=== PATIENT | male | born 1990 | race Caucasian/White ===

== ENCOUNTER 2017-03-08 19:09 | Observation (INO) ==
[2017-03-08 20:45] LABS: Basophils % 0.1 %; Hematocrit 48.2 % (37.5-50.1); Hemoglobin 16.1 g/dL (12.9-16.9); Immature Granulocytes % 0.7 % (0-4); Lymphocytes # 0.8 K/mcL (0.6-4.6); Lymphocytes % 4.8 %; Mean Corpuscular HGB Conc 33.4 g/dL (31.6-35.5); Mean Corpuscular Hemoglobin 30.3 pg (28.0-33.3); Mean Corpuscular Volume 90.8 fL (83.0-100.0); Mean Platelet Volume 9.1 fL (9.4-12.4); Monocytes # 0.7 K/mcL (0.0-1.3); Monocytes % 4.1 %; Neutrophils # 15.1 K/mcL (1.6-8.9); Platelet Count 249 K/mcL (140-400); Red Blood Count 5.31 M/mcL (4.19-5.50); Red Cell Distribution Width 13.2 % (11.5-14.5); Segmented Neutrophils % 90.3 %
[2017-03-08 20:50] LABS: Alanine Aminotransferase 36 Units/L (0-55); Albumin 4.5 g/dL (3.5-5.0); Albumin/Globulin Ratio 1.2 (1.1-2.2); Alkaline Phosphatase 91 Units/L (38-126); Aspartate Amino Transferase 19 Units/L (5-34); BUN/Creatinine Ratio 18 (6-26); Bilirubin,Direct 0.1 mg/dL (0.0-0.5); Bilirubin,Indirect 0.2 mg/dL (0.0-1.2); Bilirubin,Total < 0.3 mg/dL (0.2-1.2); Blood Urea Nitrogen 19 mg/dL (8-26); Calcium 9.8 mg/dL (8.6-10.8); Carbon Dioxide 24 mEq/L (19-29); Chloride 106 mEq/L (98-109); Globulin 3.8 g/dL (2.4-3.5); Glucose 138 mg/dL (70-99); Osmolality,Calculated 292 (280-300); Sodium 139 mEq/L (136-145); Total Protein 8.3 g/dL (6.0-8.3); eGFR For African Americans > 60 (> 60); eGFR For Non-African Americans > 60 (> 60)
[2017-03-08 20:51] LABS: Ethanol < 10 mg/dL (0-10)
[2017-03-08] MEDS ORDERED: Ondansetron 4 MG/2 ML VIAL IVP ONE (20:54)
[2017-03-08] MEDS ORDERED: 0.9 % Sodium Chloride 1,000 ML IVC ONE ×3 (20:54→23:45)
--- NOTE | 2017-03-08 21:18 | Emergency Department Note ---
Disposition Clinical Impression: Altered mental status, Urinary retention, Vision problems Disposition: Admitted As Inpatient Condition: Fair General Adult HPI - General Chief complaint: ED General Medical Stated complaint: Syncope / N/V Time Seen by Provider: 03/08/17 20:43 Source: patient Limitations: no limitations Nursing Notes Reviewed: Yes Vital Signs Reviewed: Yes - History of Present Illness HPI Narrative: Patient presents to the emergency room for evaluation of fatigue and sleepiness. Patient states he cannot keep his eyes open and continually wants to fall asleep. Patient states that she has had 2 episodes of vomiting that he cannot otherwise explain. Nonbilious nonbloody in nature. Patient states that he has a history of sleeping problems and last night took a hydroxyzine to help him sleep. The patient will usually feel groggy after he takes this medication but it clears up with a warm shower and food. The patient did what he normally does but went to orientation at his new job and was unable to keep his eyes open and began having some difficulty staying awake. He states that he is not able to remember everything that has been happening as his memory and thought processes very funny. Patient can use to head ciarra on exam and appears to be trying to remember everything but is having difficulty. On exam the patient has dizziness with extraocular muscle movements and states that he cannot focus with accommodation. His neuro exam is otherwise normal including pupils that are 3 and reactive. The patient has normal range of motion of his neck and has not had a fever. He complains of some chills. Nausea. When the patient stands up to try to urinate he feels somewhat unsteady. Pain Scale: 0 - Related Data Previous Rx's Medication Instructions Recorded Mupirocin [Bactroban Oint] 1 appl TP BID #1 tube 02/03/17 Sulfamethoxazole/Trimeth DS 1 each PO BID #20 tablet 02/03/17 [Bactrim DS] Bacitracin/PolymyxinB OPTH Oin 0 gm RIGHT EYE BID #1 oint...g. 02/23/17 Allergies Allergy/AdvReac Type Severity Reaction Status Date / Time Amoxicillin [From Augmentin] Allergy Rash Verified 04/14/15 16:37 clarithromycin [From Biaxin] Allergy Hives Verified 04/14/15 16:37 clavulanic acid Allergy Rash Verified 04/14/15 16:37 [From Augmentin] Sulfa (Sulfonamide Allergy Rash Verified 04/14/15 16:37 Antibiotics) Review of Systems: CONSTITUTIONAL: No weight loss, fever, chills, weakness or fatigue. HEENT: Eyes: No visual changes. Ears, Nose, Throat: No hearing loss, difficulty talking or unable to swallow. SKIN: No rash or itching. CARDIOVASCULAR: Tachycardia No chest pain, chest pressure or chest discomfort. No palpitations or edema. RESPIRATORY: No shortness of breath, cough or sputum. GASTROINTESTINAL: No anorexia, nausea, vomiting or diarrhea. No abdominal pain or blood. GENITOURINARY: No burning on urination or hematuria. NEUROLOGICAL: Falling asleep, cannot stay awake, vision problems, urinary retention, MUSCULOSKELETAL: No muscle pain, back pain, joint pain or stiffness. Past Medical History - Past Medical History Medical history: Reports: non-contributory, asthma, other Surgical history: Reports: no surgical history Psychiatric history: Reports: no psych history - Social History Smoking Status: Current every day smoker Smokeless Tobacco Status: No Alcohol use: Reports: occasionally Drug use: Reports: none Physical Exam General appearance: NAD, conversant Eyes: anicteric sclerae, moist conjunctivae; PERRL HENT: Atraumatic; oropharynx clear with moist mucous membranes and no mucosal ulcerations Neck: Normal inspection; Trachea midline; FROM, supple Lungs: CTA, with normal respiratory effort and no intercostal retractions CV: RRR, no MRGs Abdomen: Soft, non-tender; no rebound or gaurding Extremities: No peripheral edema or extremity lymphadenopathy Skin: Normal temperature; no rash, ulcers or lesions Psych: Appropriate mood and affect Neuro: alert and oriented to person, place and time - General Limitations: no limitations General appearance: alert, in no apparent distress - Expanded Neurological Exam Patient oriented to: Present: person Speech: Present: fluid speech Cranial nerves: EOM function (II, III, IV, ): Normal, facial sensation (V): Normal, facial palsy (VII): Normal, gag reflex (IX): Normal, spinal accessory function (XI): Normal, tongue deviation (XII): Normal Cerebellar function: finger to nose: Normal, heel to valencia: Normal Cerebellar function: normal gait Motor strength - LUE: 5/5 Motor strength - RUE: 5/5 Motor strength - LLE: 5/5 Motor strength - RLE: 5/5 Sensory exam upper extremity: light touch: Normal Sensory exam lower extremity: light touch: Normal Coma Scale Eye Opening: Spontaneous Coma Scale Motor Response: Obeys Commands Coma Scale Verbal Response: Oriented Coma Scale Total: 15 Course Course Narrative: Recognized the patient as he is to be attack on 2 N. in the ICU. After discussing with the patient he states that he took this one hydroxyzine earlier last night and has been having these symptoms since. 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 Adamantly denies any other drug use other than a prescribed benzo that he can take for anxiety that he took 3 days ago. Patient states he normally feels groggy after taking the hydroxyzine and that his symptoms did improve but during his clinicals he could not keep his eyes open and felt worse. The patient stayed here for a significant amount of time in the emergency room as it was continually thought that he would be able to be discharged but new symptoms presented. The patient's symptoms significantly improved with fluids however his heart rate upon entering the room continues to be approximately 100 despite the documented vital signs in the chart. The patient was unable to get a urine sample for a very prolonged time and after bladder scan showing greater than 700 mL of fluid he was walked to the bathroom where he thought he would be more comfortable. The patient drinks greater than 700 of fluid and has a bladder scan of approximately 200. Patient continues to feel better throughout his stay however upon negative head CT and negative urinalysis the patient is going to be discharged with family for home observation and return if better however the patient began complaining of not being able to see his cell phone and vision problems. Patient's vision problems seem to be limited to his screen and repeat reading fine print. His pupils are not significantly dilated and have not been throughout his stay. Patient has a mixed picture however does not appear to be infectious at this time. We will admit for observation and to make sure his symptoms have cleared prior to discharge. The symptoms persist we recommend neurology consult. Vital Signs Temperature 97.8 F 03/08/17 19:31 Pulse Rate 93 03/08/17 19:31 Respiratory Rate 20 03/08/17 19:31 Blood Pressure 137/87 03/08/17 19:31 O2 Sat by Pulse Oximetry 97 03/08/17 19:31 Temperature 0 F L 03/09/17 04:53 Pulse Rate 84 03/09/17 02:21 Respiratory Rate 0 03/09/17 04:53 Blood Pressure 0/0 03/09/17 04:53 O2 Sat by Pulse Oximetry 98 03/09/17 02:21 Oxygen Delivery Oxygen Delivery Room Air Medical Decision Making - Medical Records Medical records reviewed: Yes I reviewed the patient's medical records. - Lab Data Lab results reviewed: Yes I reviewed the patient's lab results. Result diagrams: 03/08/17 20:23 03/08/17 20:23 Lab Results 03/08/17 03/08/17 03/08/17 Range/Units 20:23 20:23 20:23 WBC 16.7 H (4.3-11.1) K/mcL RBC 5.31 (4.19-5.50) M/mcL Hgb 16.1 (12.9-16.9) g/dL Hct 48.2 (37.5-50.1) % MCV 90.8 (83.0-100.0) fL MCH 30.3 (28.0-33.3) pg MCHC 33.4 (31.6-35.5) g/dL RDW 13.2 (11.5-14.5) % Plt Count 249 (140-400) K/mcL MPV 9.1 L (9.4-12.4) fL Immature Gran % 0.7 (0-4) % Seg Neutrophils % 90.3 % Lymphocytes % 4.8 % Monocytes % 4.1 % Eosinophils % 0.0 % Basophils % 0.1 % Neutrophils # 15.1 H (1.6-8.9) K/mcL Lymphocytes # 0.8 (0.6-4.6) K/mcL Monocytes # 0.7 (0.0-1.3) K/mcL Eosinophils # 0.0 (0.0-0.6) K/mcL Basophils # 0.0 (0.0-0.2) K/mcL Sodium 139 (136-145) mEq/L Potassium 5.0 H (3.5-4.5) mEq/L Chloride 106 (98-109) mEq/L Carbon Dioxide 24 (19-29) mEq/L BUN 19 (8-26) mg/dL Creatinine 1.05 (0.72-1.25) mg/dL Est GFR ( Amer) > 60 (> 60) Est GFR (Non-Af Amer) > 60 (> 60) BUN/Creatinine Ratio 18 (6-26) Glucose 138 H (70-99) mg/dL Calculated Osmolality 292 (280-300) Calcium 9.8 (8.6-10.8) mg/dL Total Bilirubin < 0.3 (0.2-1.2) mg/dL Direct Bilirubin 0.1 (0.0-0.5) mg/dL Indirect Bilirubin 0.2 (0.0-1.2) mg/dL AST 19 (5-34) Units/L ALT 36 (0-55) Units/L Alkaline Phosphatase 91 (38-126) Units/L Troponin I 0.00 (0-0.03) ng/mL Serum Total Protein 8.3 (6.0-8.3) g/dL Albumin 4.5 (3.5-5.0) g/dL Globulin 3.8 H (2.4-3.5) g/dL Albumin/Globulin Ratio 1.2 (1.1-2.2) Urine Color (Yellow) Urine Clarity (Clear) Urine pH (5.0-8.0) pH Units Ur Specific [place] (1.010-1.025) Urine Protein (Neg-Trace) mg/dL Urine Glucose (UA) (Normal) mg/dL Urine Ketones (Negative) mg/dL Urine Blood (Negative) Urine Nitrite (Negative) Urine Bilirubin (Negative) Urine Urobilinogen (Normal) mg/dL Ur Leukocyte Esterase (Negative) Ur Culture Indicated? (NO) Urine Opiates Screen (Xxkpas=137) ng/mL Ur Barbiturates Screen (Haxsrq=453) ng/mL Ur Phencyclidine Scrn (Cutoff=25) ng/mL Ur Amphetamines Screen (Wjeann=6582) ng/mL U Benzodiazepines Scrn (Flysbb=976) ng/mL Urine Cocaine Screen (Cutoff= 300) ng/mL U Marijuana (THC) Screen (Cutoff = 50) ng/mL Ethyl Alcohol < 10 (0-10) mg/dL 03/09/17 03/09/17 Range/Units 01:50 01:50 WBC (4.3-11.1) K/mcL RBC (4.19-5.50) M/mcL Hgb (12.9-16.9) g/dL Hct (37.5-50.1) % MCV (83.0-100.0) fL MCH (28.0-33.3) pg MCHC (31.6-35.5) g/dL RDW (11.5-14.5) % Plt Count (140-400) K/mcL MPV (9.4-12.4) fL Immature Gran % (0-4) % Seg Neutrophils % % Lymphocytes % % Monocytes % % Eosinophils % % Basophils % % Neutrophils # (1.6-8.9) K/mcL Lymphocytes # (0.6-4.6) K/mcL Monocytes # (0.0-1.3) K/mcL Eosinophils # (0.0-0.6) K/mcL Basophils # (0.0-0.2) K/mcL Sodium (136-145) mEq/L Potassium (3.5-4.5) mEq/L Chloride (98-109) mEq/L Carbon Dioxide (19-29) mEq/L BUN (8-26) mg/dL Creatinine (0.72-1.25) mg/dL Est GFR ( Amer) (> 60) Est GFR (Non-Af Amer) (> 60) BUN/Creatinine Ratio (6-26) Glucose (70-99) mg/dL Calculated Osmolality (280-300) Calcium (8.6-10.8) mg/dL Total Bilirubin (0.2-1.2) mg/dL Direct Bilirubin (0.0-0.5) mg/dL Indirect Bilirubin (0.0-1.2) mg/dL AST (5-34) Units/L ALT (0-55) Units/L Alkaline Phosphatase (38-126) Units/L Troponin I (0-0.03) ng/mL Serum Total Protein (6.0-8.3) g/dL Albumin (3.5-5.0) g/dL Globulin (2.4-3.5) g/dL Albumin/Globulin Ratio (1.1-2.2) Urine Color Yellow (Yellow) Urine Clarity Clear (Clear) Urine pH 5.5 (5.0-8.0) pH Units Ur Specific [place] 1.025 (1.010-1.025) Urine Protein Negative (Neg-Trace) mg/dL Urine Glucose (UA) Normal (Normal) mg/dL Urine Ketones Negative (Negative) mg/dL Urine Blood Negative (Negative) Urine Nitrite Negative (Negative) Urine Bilirubin Negative (Negative) Urine Urobilinogen Normal (Normal) mg/dL Ur Leukocyte Esterase Negative (Negative) Ur Culture Indicated? NO (NO) Urine Opiates Screen Negative (Aweuge=780) ng/mL Ur Barbiturates Screen Negative (Kpcxzw=535) ng/mL Ur Phencyclidine Scrn Negative (Cutoff=25) ng/mL Ur Amphetamines Screen Negative (Bhjzug=0348) ng/mL U Benzodiazepines Scrn Positive H (Uimbdl=365) ng/mL Urine Cocaine Screen Negative (Cutoff= 300) ng/mL U Marijuana (THC) Screen Negative (Cutoff = 50) ng/mL Ethyl Alcohol (0-10) mg/dL - Radiology Data Radiology results reviewed: Yes I reviewed the patient's radiology results. Chest X-Ray 03/08/17 19:35 IMPRESSION: No acute disease D/ / Carlos Enrique Mcgee MD / Carlos Enrique Mcgee MD Interpreting Provider: Carlos Enrique Mcgee MD Head CT 03/09/17 00:12 IMPRESSION: No acute intracranial abnormality. D/ / Kendrick Connolly MD / Kendrick Connolly MD Interpreting Provider: Kendrick Connolly MD - EKG Data EKG #1 EKG attestation: Yes I reviewed and interpreted this EKG. EKG results narrative: EKG shows sinus rhythm with a ventricular rate of 72. WA interval 148. QRS 111. QTC 371. Patient hasan ST elevation or depression. Patient has some T- wave changes to the inferior leads that are present from previous EKG of 2009. Attestation Statement - Attestation Attestation: I, Natan Choudhury MD, personally evaluated this patient and discussed their management with the resident physician. I reviewed the resident's note and agree with the documented findings, medical decision making, and plan of care. 26-year-old male presents to the emergency department with complaint of altered mental status and generalized weakness. Patient states that he took a Vistaril last night before going to bed and he woke up this morning he felt very weak and drowsy and confused. He took a shower thinking he would feel better and it did help some but then when he was driving to work he states symptoms returned and he felt very sleepy and drowsy and weak. He did go to work and apparently was fine initially and then while at work he came extremely weak again. He has not been ill otherwise. No fever. No headache or stiff neck. Some nausea but no vomiting or diarrhea. No dysuria or hematuria. Several episodes of near- syncope but no actual loss of consciousness. On examination patient is a well-developed well-nourished young male in no acute distress. He is very drowsy and slow to respond but does respond to verbal stimuli. Patient appears to be overmedicated but denies taking anything other than the Vistaril last night before bed. He has taken this in the past. There is no cyanosis or diaphoresis. PERRL. Mucus membranes are moist. Neck is supple and nontender with no lymphadenopathy and full range of motion. Touches chin to chest with no discomfort. Breath sounds are clear and equal bilaterally. Heart regular with a mild tachycardia. Abdomen soft and nontender with normal bowel sounds. No gross focal neurological deficits. Labs reviewed. Chest x-ray negative. Head CT negative. Patient observed here in the emergency department for approximately 8 hours with some gradual improvement in his mental status after IV fluids however he remains symptomatic and started complaining of some visual problems. He also had some urinary retention but was finally able to urinate without having to be catheterized. Due to the persistence of his symptoms the hospitalist, Dr. Villarreal , was consulted and accepted admission of the patient.
[2017-03-09 02:01] LABS: Bilirubin,Urine Negative (Negative); Blood,Urine Negative (Negative); Clarity,Urine Clear (Clear); Color,Urine Yellow (Yellow); Glucose,Urine (UA) Normal (Normal); Ketones,Urine Negative (Negative); Leukocyte Esterase,Urine Negative (Negative); Nitrite,Urine Negative (Negative); PH,Urine 5.5 pH Units (5.0-8.0); Protein,Urine Negative (Neg-Trace); Specific Gravity,Urine 1.025 (1.010-1.025); Urobilinogen,Urine Normal (Normal)
[2017-03-09 02:05] LABS: Amphetamine Screen,Urine Negative ng/mL (Cutoff=1000); Barbiturate Screen,Urine Negative ng/mL (Cutoff=200); Benzodiazepines Screen,Urine Positive ng/mL (Cutoff=200); Cannabinoid Screen,Urine Negative ng/mL (Cutoff = 50); Cocaine Screen,Urine Negative ng/mL (Cutoff= 300); Opiate Screen,Urine Negative ng/mL (Cutoff=300); Phencyclidine Screen,Urine Negative ng/mL (Cutoff=25)
--- NOTE | 2017-03-09 04:29 | Internal Med History&Physical ---
<Solitario Brown - Last Filed: 03/09/17 04:32> Date of Encounter: 03/09/17 Time of Encounter: 03:50 Assessment and Plan (1) Acute encephalopathy Current visit: Yes Status: Acute - With drowsiness, double vision, nausea, vomiting. - Most likely secondary to hydroxyzine use. Other differential include metabolic encephalopathy or psychogenic. - Head CT found no acute intracranial abnormality. - Patient reports improvement after receiving IV fluid in ED. - Continue IV fluid. - Continue close monitoring (2) Hyperkalemia Current visit: Yes Status: Acute - K at 5.0 - Continue IV NS. - Continue to monitor. (3) Leukocytosis Current visit: Yes Status: Acute - WBC 16.7 - Likely stress response as no signs or work-up (e.g. UA and CXR) indicating active infection. - Continue to monitor. Qualifiers: Leukocytosis type: unspecified Qualified Code(s): D72.829 - Elevated white blood cell count, unspecified (4) Tobacco use Current visit: Yes Status: Acute - Smoke cessation counseling. - Okay to provide nicotine if patient needs it. (5) Insomnia Current visit: Yes Status: Chronic - Patient took hydroxyzine at home. - Patient will need to discuss with his PCP regarding insomnia medications other than hydroxyzine. Qualifiers: Insomnia type: unspecified Qualified Code(s): G47.00 - Insomnia, unspecified Internal Medicine - H&P: HPI Chief complaint: Drowsiness Admitted From: Emergency Dept Plans for Post Hospital Care: Home History of present illness: Mr. Crowell is a 26 year old male with PMH of asthma and depression/anxiety. 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 Patient reports having double vision and unable to read on screen. Patient also had 4 episode of vomiting. Patient reports taking one pill of hydroxyzine earlier last night. Patient denies fever, chills, neck pain, chest pain, abdominal pain, diarrhea, constipation, dysuria. Patient reports taking prescribed benzo three days ago but denies any other drug use. Patient denies suicidal or homicidal ideation. Patient denies any jerking, tongue bitting or incontinence and has no known seizure history. Patient did have longer than normal time to urinate despite of receiving 3L of IV NS. Head CT and CXR in ED found no acute abnormality. Patient was noted to have WBC 16.7 and K 5.0 but rest of labs are unremarkable. Past Med Surg Social Fam HX - Past Medical History Medical history: non-contributory, asthma, other Psychiatric history: anxiety, depression - Past Surgical History Surgical History: other (Sinus reconstruction surgery) - Social History Smoking Status: Current every day smoker Smokeless Tobacco Status: No Alcohol use: occasionally Drug use: none - Family History Mother Hx Family Endocrine Disorder: Yes (DM) Hx Family Neurologic Disorders: Yes (seizure) Hx Family Autoimmune Disorders: Yes (RA) Internal Medicine - H&P: Meds Mupirocin [Bactroban Oint] 1 appl TP BID #1 tube 02/03/17 [Rx] Sulfamethoxazole/Trimeth DS [Bactrim DS] 1 each PO BID #20 tablet 02/03/17 [Rx] Bacitracin/PolymyxinB OPTH Oin 0 gm RIGHT EYE BID #1 oint...g. 02/23/17 [Rx] Allergies Amoxicillin [From Augmentin] Allergy (Verified 04/14/15 16:37) Rash clarithromycin [From Biaxin] Allergy (Verified 04/14/15 16:37) Hives clavulanic acid [From Augmentin] Allergy (Verified 04/14/15 16:37) Rash Sulfa (Sulfonamide Antibiotics) Allergy (Verified 04/14/15 16:37) Rash All Systems PM: A 10-system review of systems was performed and is negative for pertinent findings except as documented above in the HPI. - Constitutional Constitutional: no anorexia, no chills, no fever(s) - EENT Eyes: diplopia Ears: decreased hearing Nose, mouth and throat: no dysphagia, no odynophagia - Cardiovascular Cardiovascular ROS IM: palpitations, no chest pain, no edema - Respiratory Respiratory: dyspnea, no cough, no hemoptysis - Gastrointestinal Gastrointestinal: nausea, vomiting, no abdominal pain, no constipation, no diarrhea - Genitourinary Genitourinary ROS male: no dysuria, no hematuria - Integumentary Integumentary IM: no pruritus, no rash - Neurological Neurological ROS: no focal weakness, no numbness, no tingling - Hematologic/Lymphatic Hematologic/Lymphatic: no easy bleeding, no easy bruising - Constitutional Vitals: Temp Pulse Resp BP Pulse Ox 97.8 F 84 18 124/85 98 03/08/17 22:15 03/09/17 02:21 03/09/17 02:21 03/09/17 02:21 03/09/17 02:21 General appearance: Present: cooperative, A&O X 3, no acute distress - Head Head exam: Present: atraumatic, normocephalic - Eye Eye exam: Present: EOMI, PERRL, conjuntiva pink, sclera anicteric - Neck Neck exam general surgery: Present: supple, trachea midline. Absent: lymphadenopathy - Respiratory Respiratory exam: Present: CTAB. Absent: accessory muscle use, rales, rhonchi, wheezes - Cardiovascular Cardiovascular exam: Present: RRR, +S1, +S2. Absent: diastolic murmur, gallop, rubs, systolic murmur - GI/Abdominal GI/Abdominal exam: Present: normal bowel sounds, soft, no peritoneal signs. Absent: distended, tenderness - Extremities Exam Extremities exam: Present: warm, radial pulses palpable and symetrical. Absent : calf tenderness, cyanotic, pedal edema - Neurological Exam Neurological exam: Present: CN II-XII intact, oriented X3, no focal deficits. Absent: pronater drift, facial droop, speech deficit - Skin Skin exam: Present: dry, intact, warm Internal Med - H&P Results - Labs CBC & Chem 7: 03/08/17 20:23 03/08/17 20:23 <Alexander Villarreal - Last Filed: 03/09/17 06:36> Date of Encounter: 03/09/17 Internal Medicine - H&P: HPI History of present illness: Mr. Crowell is a 26 year old male All Systems PM: A 10-system review of systems was performed and is negative for pertinent findings except as documented above in the HPI. - Constitutional Vitals: Temp Pulse Resp BP Pulse Ox 0 F L 84 0 0/0 98 03/09/17 04:53 03/09/17 02:21 03/09/17 04:53 03/09/17 04:53 03/09/17 02:21 Internal Med - H&P Results - Labs CBC & Chem 7: 03/08/17 20:23 03/08/17 20:23 - Diagnostic Studies Chest x-ray Status: image reviewed by me CT scan - head Status: image reviewed by me - Attending Attestation I personally interviewed and examined this patient and my medical decision- making was reviewed with the Resident Physician. I agree with the documented findings, disposition and treatment plan as described. He can be discharged hoe later in the day, he was given patient information from "[facility]" concerning hydroxyzine. Alexander Villarreal MD, MPH Hospitalist
[2017-03-09] MEDS ORDERED: 0.9 % Sodium Chloride 1,000 ML IVC SCH (04:30)
[2017-03-09] MEDS: Nicotine 14 MG PATCH.TD24 TD SCH ×2 (06:25→10:48)
[2017-03-09] MEDS ORDERED: *HR* Heparin 5,000 UNIT/ML VIAL SQ SCH (06:45)
[2017-03-09 07:53] LABS: BUN/Creatinine Ratio 14 (6-26); Blood Urea Nitrogen 12 mg/dL (8-26); Calcium 8.8 mg/dL (8.6-10.8); Carbon Dioxide 28 mEq/L (19-29); Chloride 107 mEq/L (98-109); Glucose 98 mg/dL (70-99); Osmolality,Calculated 296 (280-300); Sodium 143 mEq/L (136-145); eGFR For African Americans > 60 (> 60); eGFR For Non-African Americans > 60 (> 60)
[2017-03-09 08:04] LABS: Basophils % 0.2 %; Eosinophils % 0.4 %; Hematocrit 42.1 % (37.5-50.1); Immature Granulocytes % 0.4 % (0-4); Lymphocytes # 2.7 K/mcL (0.6-4.6); Lymphocytes % 33.4 %; Mean Corpuscular HGB Conc 32.5 g/dL (31.6-35.5); Mean Corpuscular Hemoglobin 30.1 pg (28.0-33.3); Mean Corpuscular Volume 92.5 fL (83.0-100.0); Mean Platelet Volume 9.3 fL (9.4-12.4); Monocytes # 0.7 K/mcL (0.0-1.3); Monocytes % 8.6 %; Neutrophils # 4.6 K/mcL (1.6-8.9); Platelet Count 208 K/mcL (140-400); Red Blood Count 4.55 M/mcL (4.19-5.50); Red Cell Distribution Width 13.5 % (11.5-14.5)
[2017-03-09 08:06] LABS: Potassium 3.9 mEq/L (3.5-4.5)
[2017-03-09 08:19] LABS: Hemoglobin 13.7 g/dL (12.9-16.9)
[2017-03-09] MEDS ORDERED: Metoclopramide 10 MG in 0.9 % Sodium Chloride 50 ML IVPB ONE (11:31)
[2017-03-09] MEDS ORDERED: Metoclopramide 10 MG/2 ML VIAL IVP ONE (11:32)
[2017-03-09 11:38] VITALS: BP 134/88
--- NOTE | 2017-03-09 14:15 | Discharge Summary ---
Date of Encounter: 03/09/17 Time of Encounter: 13:45 - Discharge Diagnosis (1) Acute encephalopathy Priority: Primary Status: Acute Comments: Pt has returned to baseline. He is a/o x 3, speech is clear, he has full recollection of events. Head cT negative. Labs WNL. Vitals stable. (2) Hyperkalemia Priority: Secondary Status: Resolved Comments: Resolved. 3.9 (3) Insomnia Priority: Secondary Status: Chronic Comments: Chronic. I have talked to him about not taking Hydroxyzine anymore. Try relaxation techniques prior to medications. Qualifiers: Insomnia type: unspecified Qualified Code(s): G47.00 - Insomnia, unspecified (4) Tobacco use Priority: Secondary Status: Chronic Comments: Pt states that he does not smoke that much and that he will quit on his own. (5) Leukocytosis Priority: Secondary Status: Resolved Comments: Resolved. Hgb 8.1 Qualifiers: Leukocytosis type: unspecified Qualified Code(s): D72.829 - Elevated white blood cell count, unspecified - Discharge Medications Home Medications: Omeprazole [PriLOSEC] 20 mg PO DAILY 03/09/17 [History] Allergies/Adverse Reactions: Allergies Amoxicillin [From Augmentin] Allergy (Verified 04/14/15 16:37) Rash clarithromycin [From Biaxin] Allergy (Verified 04/14/15 16:37) Hives clavulanic acid [From Augmentin] Allergy (Verified 04/14/15 16:37) Rash Sulfa (Sulfonamide Antibiotics) Allergy (Verified 04/14/15 16:37) Rash Date of admission: 03/09/17 04:21 Primary care physician: Katie Heart CNP Discharging clinician: Brianne Antonio Anticipated date of discharge: 03/09/17 - Patient Status Disposition: Home, Self-Care Condition: Good Functional capacity at discharge: independent ambulation Overall status at discharge: patient is back to baseline - Discharge Instructions Follow Up With: Katie Heart CNP [Primary Care Provider] - Additional Instructions: Please follow up with your PCP for a follow up visit in the next 7-10 days. Do not take Hydroxyzine anymore. Try relaxation techniques as we discussed. Try to stop smoking. Return to work tomorrow. Return to ED for any other problems or concerns. - Diet and Activity Activity: resume usual activities as tolerated Diet: advance to your usual diet Hospital course: Mr. Crowell is a 26 year old male with PMH of insomnia and GERD. Pt states that he has taken hydroxyzine in the past and was very drowsy for a long period of time after. He took another one the night prior to admission at about 2200, slept all night and awakened at about 1300 the day of admission. He states that he had to be at work at 1400 and became increasingly more drowsy after he got to work and was sent to the ED for evaluation. He had several episodes of emesis prior to arrival at ED. Pt states that he became better after IVF in the ED. Pt had leukocytosis on arrival which was most likely reactive to stressors since there was no source of infection found and it has returned to normal this a.m. Pt states that he barely smokes and he will quit on his own, does not with to have any smoking cessation tools or materials. Pt states that he was taking the hydroxyzine for chronic insomnia. We have discussed relaxation techniques to try in lieu of medications. Head CT and chest xrays were negative for acute processes. Labs have returned to baseline. Vitals are stable. Pt is stable and ready for discharge. Time spent discussing smoking cessation with patient: 3 to 10 minutes - Time Spent with Patient Total time spent providing and/or coordinating discharge services: Less than 30 minutes - Constitutional Vitals: Temp Pulse Resp BP Pulse Ox 98.0 F 97 16 134/88 98 03/09/17 11:38 03/09/17 11:38 03/09/17 11:38 03/09/17 11:38 03/09/17 11:38 General appearance: Present: cooperative, A&O X 3, pleasant, no acute distress, answers questions appropriately - Head Head exam: Present: normal inspection - Eye Eye exam: Present: EOMI, normal appearance, PERRL, conjuntiva pink. Absent: nystagmus - ENT ENT exam: Present: mucous membranes moist, normal exam, normal external ear exam - Neck Neck exam general surgery: Present: normal inspection. Absent: lymphadenopathy , tenderness - Respiratory Respiratory exam: Present: CTAB. Absent: chest wall tenderness, decreased breath sounds, rales, respiratory distress, rhonchi, stridor, wheezes, tachypnea - Cardiovascular Cardiovascular exam: Present: RRR, +S1, +S2. Absent: clicks, diastolic murmur, gallop, systolic murmur - GI/Abdominal GI/Abdominal exam: Present: soft. Absent: distended, hepatomegaly, mass, tenderness - Extremities Exam Extremities exam: Present: normal capillary refill, warm, radial pulses palpable and symetrical. Absent: joint swelling, pedal edema, tenderness - Neurological Exam Neurological exam: Present: alert, oriented X3, no focal deficits, strengths equal and symetr throughout. Absent: pronater drift, facial droop, speech deficit
--- NOTE | 2017-03-11 15:09 | Electrocardiograph Report ---
[address] [place] [address] Test Date: 2017-03-08 Pat Name: Henry Crowell Department: 105 Room: 3B39 Gender: M Procedure Tech: SARA : 1990 Requested By: Natan Choudhury Order Number: [id number] Reading MD: Kavita Hernandez Measurements Intervals [place] Rate: 72 P: 53 NM: 148 QRS: 14 QRSD: 111 T: -9 QT: 346 QTc: 371 Interpretive Statements SINUS RHYTHM INTRAVENTRICULAR CONDUCTION DELAY NONSPECIFIC T WAVE INVERSIONS Electronically Signed On 03-10-2017 11:58:29 EDT by Kavita Hernandez
== END 2017-03-09 15:35 | disposition home or self-care (01) ==
LOC: EMEROO 19:09 → 3BNU 19:09
PROVIDERS: ADMIT Internal Medicine; ATTEND Registered Nurse

== ENCOUNTER 2019-07-27 04:51 | Inpatient (IN) ==
[2019-07-27] MEDS ORDERED: Ondansetron 4 MG/2 ML VIAL IVP ONE ×2 (06:11→12:46)
[2019-07-27] MEDS ORDERED: 0.9 % Sodium Chloride 1,000 ML IVC ONE ×2 (06:11→06:40)
[2019-07-27 06:21] LABS: Basophils % 0.3 %; Eosinophils % 0.2 %; Hematocrit 54.9 % (37.5-50.1); Immature Granulocytes % 0.4 % (0-4); Lymphocytes # 1.1 K/mcL (0.6-4.6); Lymphocytes % 7.9 %; Mean Corpuscular Hemoglobin 30.7 pg (28.0-33.3); Mean Corpuscular Volume 87.7 fL (83.0-100.0); Mean Platelet Volume 9.3 fL (9.4-12.4); Monocytes # 1.1 K/mcL (0.0-1.3); Monocytes % 7.5 %; Neutrophils # 12.1 K/mcL (1.6-8.9); Platelet Count 361 K/mcL (140-400); Red Blood Count 6.26 M/mcL (4.19-5.50); Red Cell Distribution Width 12.4 % (11.5-14.5); Segmented Neutrophils % 83.7 %
[2019-07-27 06:22] LABS: Hemoglobin 19.2 g/dL (12.9-16.9); White Blood Count 14.4 K/mcL (4.3-11.1)
[2019-07-27 06:28] LABS: Alanine Aminotransferase 30 Units/L (7-52); Albumin 5.1 g/dL (3.5-5.7); Albumin/Globulin Ratio 1.7 (1.1-2.2); Alkaline Phosphatase 96 Units/L (34-104); Amylase 149 Units/L (29-103); Aspartate Amino Transferase 20 Units/L (13-39); BUN/Creatinine Ratio 13 (6-26); Bilirubin,Direct 0.1 mg/dL (0.0-0.2); Bilirubin,Indirect 0.6 mg/dL (0.0-1.0); Bilirubin,Total 0.7 mg/dL (0.3-1.0); Blood Urea Nitrogen 17 mg/dL (6-20); Calcium 10.5 mg/dL (8.6-10.3); Carbon Dioxide 20 mEq/L (23-29); Chloride 104 mEq/L (98-107); Glucose 144 mg/dL (70-105); Lipase 215 Units/L (11-82); Osmolality,Calculated 296 (280-300); Potassium 3.6 mEq/L (3.5-5.1); Sodium 141 mEq/L (136-145); Total Protein 8.1 g/dL (6.4-8.9); eGFR For African Americans > 60 (> 60); eGFR For Non-African Americans > 60 (> 60)
[2019-07-27] MEDS ORDERED: Promethazine 25 MG in 0.9 % Sodium Chloride 50 ML IVPB ONE (06:40)
[2019-07-27] MEDS ORDERED: Isovue-370 500 ML BOTTLE IVP ONE (06:41)
[2019-07-27 07:14] LABS: Bilirubin,Urine Moderate (Negative); Blood,Urine Negative (Negative); Clarity,Urine Cloudy (Clear); Color,Urine Red (Yellow); Glucose,Urine (UA) Normal (Normal); Ketones,Urine Trace mg/dL (Negative); Leukocyte Esterase,Urine Trace (Negative); Nitrite,Urine Positive (Negative); PH,Urine 5.5 pH Units (5.0-8.0); Protein,Urine 100 mg/dL (Neg-Trace); Specific Gravity,Urine > 1.030 (1.010-1.025); Urobilinogen,Urine Normal (Normal)
[2019-07-27 07:17] LABS: Squamous Epithelial Cell,Urine Many per lpf (None-Few)
[2019-07-27 07:48] LABS: Hyaline Casts,Urine Many per lpf (None-Few)
[2019-07-27 07:49] LABS: Bacteria,Urine Moderate per hpf (None-Few)
[2019-07-27] MEDS ORDERED: cefTRIAXone 1,000 MG in 0.9 % Sodium Chloride Mini Bag 100 ML IVPB ONE (07:59)
[2019-07-27] MEDS ORDERED: *HR* LORazepam 2 MG/ML VIAL IVP ONE (07:59)
[2019-07-27] MEDS ORDERED: Naloxone 0.4 MG/ML INJ IVP PRN (08:43)
[2019-07-27] MEDS ORDERED: 0.9 % Sodium Chloride 2,000 ML IV ONE (09:15)
[2019-07-27 09:24] LABS: C-Reactive Protein 7 mg/L (Less than 10); Phosphorous 3.4 mg/dL (2.7-4.5)
[2019-07-27 09:33] LABS: Amphetamine Screen,Urine Negative ng/mL (Cutoff=1000); Barbiturate Screen,Urine Negative ng/mL (Cutoff=200); Benzodiazepines Screen,Urine Negative ng/mL (Cutoff=200); Cannabinoid Screen,Urine Positive ng/mL (Cutoff = 50); Cocaine Screen,Urine Negative ng/mL (Cutoff= 300); Opiate Screen,Urine Negative ng/mL (Cutoff=300); Phencyclidine Screen,Urine Negative ng/mL (Cutoff=25)
[2019-07-27 10:13] LABS: Estimated Average Glucose 94 mg/dl
[2019-07-27] MEDS: Ondansetron ODT 4 MG TAB.RAPDIS SL PRN (11:21)
[2019-07-27] MEDS: Lactobacillus 1 EACH CAP.SPRINK PO SCH ×2 (11:43→21:22)
[2019-07-27] MEDS: MetroNIDAZOLE 500 MG/100 ML 500 MG/100 ML BAG IVPB SCH ×3 (11:43→23:30)
[2019-07-27 13:51] LABS: Adenovirus F 40/41 PCR Not detected (Not detect); Astrovirus PCR Not detected (Not detect); C.difficile Toxin A/B Gene PCR Not detected (Not detect); Campylobacter by PCR Not detected (Not detect); Cryptosporidium by PCR Not detected (Not detect); Cyclospora cayetanensis PCR Not detected (Not detect); E. coli O157 by PCR Not detected (Not detect); Entamoeba histolytica PCR Not detected (Not detect); Enteroaggregative E.coli(EAEC) Not detected (Not detect); Enteropathogenic E.coli(EPEC) Not detected (Not detect); Enterotoxigenic E.coli (ETEC) Not detected (Not detect); Giardia lamblia PCR Not detected (Not detect); Plesiomonas shigelloides PCR Not detected (Not detect); Salmonella PCR Not detected (Not detect); Shig/EnteroinvasiveE coli EIEC Not detected (Not detect); Shigalike tox-prod E coli STEC Not detected (Not detect); Vibrio PCR Not detected (Not detect); Vibrio cholerae PCR Not detected (Not detect); Yersinia enterocolitica PCR Not detected (Not detect)
[2019-07-27 13:52] LABS: Norovirus GI/GII PCR DETECTED (Not detect); Rotavirus A PCR Not detected (Not detect); Sapovirus PCR Not detected (Not detect)
[2019-07-27 14:39] LABS: Occult Blood,Stool Positive (Negative)
[2019-07-27] MEDS ORDERED: hydrOXYzine pamoate 25 MG CAPSULE PO PRN (16:47)
[2019-07-27] MEDS ORDERED: 0.9 % Sodium Chloride 1,000 ML IV ONE (19:45)
[2019-07-28 06:17] LABS: INR 1.1
[2019-07-28 06:18] LABS: Basophils % 0.2 %; Eosinophils % 0.4 %; Hematocrit 45.9 % (37.5-50.1); Immature Granulocytes % 0.2 % (0-4); Lymphocytes # 1.2 K/mcL (0.6-4.6); Mean Corpuscular HGB Conc 33.1 g/dL (31.6-35.5); Mean Corpuscular Volume 93.5 fL (83.0-100.0); Mean Platelet Volume 9.3 fL (9.4-12.4); Monocytes # 0.5 K/mcL (0.0-1.3); Monocytes % 10.7 %; Neutrophils # 3.1 K/mcL (1.6-8.9); Platelet Count 186 K/mcL (140-400); Red Blood Count 4.91 M/mcL (4.19-5.50); Red Cell Distribution Width 12.6 % (11.5-14.5); Segmented Neutrophils % 63.5 %
[2019-07-28 06:22] LABS: White Blood Count 4.8 K/mcL (4.3-11.1)
[2019-07-28 06:23] LABS: Hemoglobin 15.2 g/dL (12.9-16.9)
[2019-07-28 06:36] LABS: Alanine Aminotransferase 19 Units/L (7-52); Albumin 3.7 g/dL (3.5-5.7); Albumin/Globulin Ratio 1.8 (1.1-2.2); Alkaline Phosphatase 66 Units/L (34-104); Aspartate Amino Transferase 13 Units/L (13-39); BUN/Creatinine Ratio 9 (6-26); Bilirubin,Total 0.6 mg/dL (0.3-1.0); Blood Urea Nitrogen 10 mg/dL (6-20); Calcium 8.6 mg/dL (8.6-10.3); Carbon Dioxide 25 mEq/L (23-29); Chloride 108 mEq/L (98-107); Chol/HDL Ratio 4.7 (0-4.9); Cholesterol 112 mg/dL (< 200); Globulin 2.1 g/dL (2.4-3.5); Glucose 92 mg/dL (70-105); HDL Cholesterol 24 mg/dL (40-59); LDL Cholesterol,Calculated 71 mg/dL (0-99); Osmolality,Calculated 295 (280-300); Potassium 3.4 mEq/L (3.5-5.1); Sodium 143 mEq/L (136-145); Total Protein 5.8 g/dL (6.4-8.9); Triglycerides 83 mg/dL (< 150); eGFR For African Americans > 60 (> 60); eGFR For Non-African Americans > 60 (> 60)
[2019-07-28] MEDS: MetroNIDAZOLE 500 MG/100 ML 500 MG/100 ML BAG IVPB SCH ×2 (08:29→16:50)
[2019-07-28] MEDS: Lactobacillus 1 EACH CAP.SPRINK PO SCH ×2 (08:29→20:21)
[2019-07-28] MEDS: levoFLOXacin 750 MG/150 ML 750 MG/150 ML BAG IVPB SCH (09:36)
[2019-07-28] MEDS ORDERED: Potassium Chloride 20 MEQ, Lidocaine 1% 2 ML in 0.9 % Sodium Chloride 250 ML IVPB ONE (09:51)
[2019-07-28] MEDS: 0.9 % Sodium Chloride 1,000 ML IVC SCH (13:41)
[2019-07-28] MEDS: Pantoprazole 40 MG VIAL IVP SCH (13:41)
[2019-07-28 16:50] LABS: Hematocrit 45.1 % (37.5-50.1); Hemoglobin 15.1 g/dL (12.9-16.9)
[2019-07-28] MEDS: traZODone 50 MG TABLET PO SCH (20:21)
[2019-07-29] MEDS: MetroNIDAZOLE 500 MG/100 ML 500 MG/100 ML BAG IVPB SCH ×4 (00:09→22:50)
[2019-07-29] MEDS: 0.9 % Sodium Chloride 1,000 ML IVC SCH ×3 (02:36→18:11)
[2019-07-29 09:12] LABS: Basophils % 0.5 %; Eosinophils % 0.5 %; Hematocrit 44.7 % (37.5-50.1); Hemoglobin 15.3 g/dL (12.9-16.9); Immature Granulocytes % 0.5 % (0-4); Lymphocytes # 1.3 K/mcL (0.6-4.6); Lymphocytes % 29.8 %; Mean Corpuscular HGB Conc 34.2 g/dL (31.6-35.5); Mean Corpuscular Hemoglobin 31.1 pg (28.0-33.3); Mean Corpuscular Volume 90.9 fL (83.0-100.0); Monocytes # 0.5 K/mcL (0.0-1.3); Neutrophils # 2.5 K/mcL (1.6-8.9); Platelet Count 198 K/mcL (140-400); Red Blood Count 4.92 M/mcL (4.19-5.50); Red Cell Distribution Width 12.6 % (11.5-14.5); Segmented Neutrophils % 56.7 %; White Blood Count 4.4 K/mcL (4.3-11.1)
[2019-07-29 09:32] LABS: BUN/Creatinine Ratio 7 (6-26); Blood Urea Nitrogen 8 mg/dL (6-20); Calcium 8.5 mg/dL (8.6-10.3); Carbon Dioxide 26 mEq/L (23-29); Chloride 113 mEq/L (98-107); Glucose 88 mg/dL (70-105); Osmolality,Calculated 296 (280-300); Potassium 3.7 mEq/L (3.5-5.1); Sodium 144 mEq/L (136-145); eGFR For African Americans > 60 (> 60); eGFR For Non-African Americans > 60 (> 60)
[2019-07-29] MEDS: Pantoprazole 40 MG VIAL IVP SCH (09:40)
[2019-07-29] MEDS: FLUoxetine 20 MG CAPSULE PO SCH (09:42)
[2019-07-29] MEDS: Ondansetron ODT 4 MG TAB.RAPDIS SL PRN (09:42)
[2019-07-29] MEDS: levoFLOXacin 750 MG/150 ML 750 MG/150 ML BAG IVPB SCH (09:42)
[2019-07-29] MEDS: Lactobacillus 1 EACH CAP.SPRINK PO SCH ×2 (09:42→21:06)
[2019-07-29] MEDS: traZODone 50 MG TABLET PO SCH (21:06)
[2019-07-30 01:47] LABS: BUN/Creatinine Ratio 6 (6-26); Blood Urea Nitrogen 7 mg/dL (6-20); Calcium 8.4 mg/dL (8.6-10.3); Carbon Dioxide 26 mEq/L (23-29); Chloride 111 mEq/L (98-107); Glucose 85 mg/dL (70-105); Magnesium 1.8 mg/dL (1.6-2.6); Osmolality,Calculated 289 (280-300); Potassium 3.5 mEq/L (3.5-5.1); Sodium 141 mEq/L (136-145); eGFR For African Americans > 60 (> 60); eGFR For Non-African Americans > 60 (> 60)
[2019-07-30] MEDS: 0.9 % Sodium Chloride 1,000 ML IVC SCH (05:39)
[2019-07-30 08:08] LABS: Celiac Disease Dual Antigen 8 Units (0-19)
[2019-07-30] MEDS: MetroNIDAZOLE 500 MG/100 ML 500 MG/100 ML BAG IVPB SCH (09:04)
[2019-07-30] MEDS: Lactobacillus 1 EACH CAP.SPRINK PO SCH (09:05)
[2019-07-30] MEDS: Pantoprazole 40 MG VIAL IVP SCH (09:06)
[2019-07-30] MEDS: FLUoxetine 20 MG CAPSULE PO SCH (09:09)
[2019-07-30 09:57] LABS: Ova & Parasite Stain NEGATIVE (Negative)
[2019-07-30] MEDS: levoFLOXacin 750 MG/150 ML 750 MG/150 ML BAG IVPB SCH (11:24)
[2019-07-30 11:49] VITALS: BP 105/67
== END 2019-07-30 13:53 | disposition home or self-care (01) | DRG 249 ==
LOC: EMEROOARM 04:51 → 3BNU 04:51
PROVIDERS: ADMIT Internal Medicine; ATTEND General Practice